=== PATIENT | female | born 1990 | race Caucasian/White ===

== ENCOUNTER 2021-05-06 11:19 | Observation (INO) | payer MEDICAID ==
[~2021-05-06] VITALS: Ht 170.2 cm; Wt 84.4 kg
[2021-05-06] MEDS ORDERED: PREN1TAB78 MT (15:16)
== END 2021-05-06 15:20 | disposition home or self-care (01) ==
LOC: 8 EST LDRP 11:19
PROVIDERS: ADMIT Obstetrics & Gynecology; ATTEND Obstetrics & Gynecology
DX: O36.8130 Decreased fetal movements, third trimester, not applicable or unspecified (principal); Z3A.28 28 weeks gestation of pregnancy
CPT/HCPCS: 59025; 76805; 76818; G0378; 99281; G0379